=== PATIENT | female | born 1985 | race American Indian/Alaskan Native ===

== ENCOUNTER → 2024-12-31 | Outpatient (CLI) | payer BC, OTHER, SELFPAY ==
--- NOTE | 2024-12-31 12:30 | XR_ITS ---
Examination: Retroperitoneal ultrasound, complete Technique: Multiple high resolution grayscale images of the retroperitoneum obtained, including kidneys and bladder. Exam date and time: December 31, 2024, 12:00 p.m. INDICATIONS: Microscopic hematuria and laboratory examination performed 1 month ago. FINDINGS: Right kidney 10.1 cm renal cortex 2.1 cm Mild right hydronephrosis Left kidney 10.4 cm renal cortex 2.1 cm Mild bilateral renal scar formation Contracted urinary bladder no bladder mass IMPRESSION: Mild right hydronephrosis
== END | disposition home or self-care (01) ==
LOC: CDIM 11:43
PROVIDERS: PCP Nurse Practitioner Family; Referring Provider Nurse Practitioner Family; Visit Provider Nurse Practitioner Family
DX: N13.30 Unspecified hydronephrosis (principal)
CPT/HCPCS: 76770